=== PATIENT | male | born 1965 | race Caucasian/White ===

== ENCOUNTER 2020-09-26 21:02 | Emergency (ER) | payer BC, OTHER ==
[2020-09-26 21:16] VITALS: BP 128/71; PULSE 95
[2020-09-26] MEDS ORDERED: Sodium Chloride 0.9% 10 ML Syringe FLUSH PRN (21:18)
--- NOTE | 2020-09-26 21:43 | EDM.PDOC ---
ED HPI GENERAL MEDICAL PROBLEM - General Chief Complaint: Respiratory Problem Stated Complaint: cough and congestion feels horrible Time Seen by Provider: 09/26/20 21:07 Source of Information: Reports: Patient, RN Notes Reviewed History Limitations: Reports: No Limitations - History of Present Illness INITIAL COMMENTS - FREE TEXT/NARRATIVE: Patient is a 54-year-old male presenting to the emergency department with complaints of cough and chest congestion. Reports he has felt chest congestion for approximately 1 week and the cough has been occurring for the last few days. Reports that at times he coughs so hard that it makes him dry heaves. His cough is occasionally productive. He also reports intermittent dizziness upon standing. Denies any chest pain or shortness of breath. Denies any chronic lung conditions. He has not had Covid nor has he been vaccinated for this. He denies any known exposures to individuals positive for Covid 19. He has had no fever, chills, abdominal pain, nausea, vomiting, or diarrhea. Denies any sinus congestion or sore throat. Vital signs in triage were found to be normal. Temperature 97.7, pulse 95, blood pressure 128/71, respiratory rate 18, oxygen 95% on room air. Orthostatic vital signs were also obtained during the triage process and were found to be normal. Patient is not orthostatic. Chest Pain Score (Numeric/FACES): 4 - Related Data Allergies Allergy/AdvReac Type Severity Reaction Status Date / Time prednisone Allergy Other Verified 09/26/20 21:09 Home Meds: Home Meds Losartan/Hydrochlorothiazide [Losartan-HCTZ 50-12.5 MG] 1 tab PO DAILY 09/26/20 [History] Past Medical History - Past Health History Medical/Surgical History: Denies Medical/Surgical History HEENT History: Reports: None Cardiovascular History: Reports: Hypertension Respiratory History: Reports: None Gastrointestinal History: Reports: GERD Genitourinary History: Reports: None Musculoskeletal History: Reports: None Neurological History: Reports: Migraines Psychiatric History: Reports: None Endocrine/Metabolic History: Reports: None Hematologic History: Reports: None Immunologic History: Reports: None Oncologic (Cancer) History: Reports: None Dermatologic History: Reports: None - Infectious Disease History Infectious Disease History: Reports: Chicken Pox, Measles - Past Surgical History HEENT Surgical History: Reports: Oral Surgery GI Surgical History: Reports: Appendectomy Musculoskeletal Surgical History: Reports: None Social & Family History - Family History Family Medical History: No Pertinent Family History - Tobacco Use Tobacco Use Status *Q: Former Tobacco User Used Tobacco, but Quit: Yes Month/Year Tobacco Last Used: 04/2000 - Caffeine Use Caffeine Use: Reports: Coffee - Recreational Drug Use Recreational Drug Use: Yes Drug Use in Last 12 Months: No Recreational Drug Type: Reports: Marijuana/Hashish Recreational Drug Use Frequency: Not Used In Over 1 Year ED ROS GENERAL - Review of Systems Review Of Systems: See Below Constitutional: Reports: Fatigue. Denies: Fever, Chills HEENT: Reports: No Symptoms Respiratory: Reports: Cough, Sputum. Denies: Shortness of Breath, Wheezing Cardiovascular: Reports: Lightheadedness (upon standing). Denies: Chest Pain Endocrine: Reports: No Symptoms GI/Abdominal: Reports: Vomiting. Denies: Abdominal Pain, Diarrhea, Nausea : Reports: No Symptoms Musculoskeletal: Reports: No Symptoms Skin: Reports: No Symptoms Neurological: Reports: No Symptoms Psychiatric: Reports: No Symptoms Hematologic/Lymphatic: Reports: No Symptoms Immunologic: Reports: No Symptoms ED EXAM, GENERAL - Physical Exam Exam: See Below Exam Limited By: No Limitations General Appearance: Alert, WD/WN, No Apparent Distress Respiratory/Chest: No Respiratory Distress, Lungs Clear, Normal Breath Sounds, No Accessory Muscle Use, Chest Non-Tender Cardiovascular: Normal Peripheral Pulses, Regular Rate, Rhythm, No Edema, No Gallop, No JVD, No Murmur, No Rub GI/Abdominal: Normal Bowel Sounds, Soft, Non-Tender, No Organomegaly, No Distention, No Abnormal Bruit, No Mass Neurological: Alert, Oriented, CN II-XII Intact, Normal Cognition, Normal Gait, Normal Reflexes, No Motor/Sensory Deficits Psychiatric: Normal Affect, Normal Mood Skin Exam: Warm, Dry, Intact, Normal Color, No Rash Course - Vital Signs Last Recorded V/S: Last Vital Signs Temp 97.7 F 09/26/20 21:14 Pulse 95 09/26/20 21:14 Resp 18 09/26/20 21:14 BP 128/71 09/26/20 21:14 Pulse Ox 95 09/26/20 21:14 Orthostatic Blood Pressure [ 110/60 Standing] Orthostatic Blood Pressure [ 111/76 Sitting] Orthostatic Blood Pressure [ 117/68 Supine] - Orders/Labs/Meds Labs: Laboratory Tests 09/26/20 09/26/20 09/26/20 Range/Units 21:41 21:41 21:42 WBC 4.16 L (4.23-9.07) K/mm3 RBC 4.74 (4.63-6.08) M/mm3 Hgb 14.9 (13.7-17.5) gm/dl Hct 41.4 (40.1-51.0) % MCV 87.3 (79.0-92.2) fl MCH 31.4 (25.7-32.2) pg MCHC 36.0 H (32.2-35.5) g/dl RDW Std Deviation 44.8 H (35.1-43.9) fL Plt Count 175 (163-337) K/mm3 MPV 9.8 (9.4-12.3) fl Neut % (Auto) 75.8 H (34.0-67.9) % Lymph % (Auto) 16.1 L (21.8-53.1) % Love % (Auto) 7.2 (5.3-12.2) % Eos % (Auto) 0.2 L (0.8-7.0) Baso % (Auto) 0.2 (0.1-1.2) % Neut # (Auto) 3.15 (1.78-5.38) K/mm3 Lymph # (Auto) 0.67 L (1.32-3.57) K/mm3 Love # (Auto) 0.30 (0.30-0.82) K/mm3 Eos # (Auto) 0.01 L (0.04-0.54) K/mm3 Baso # (Auto) 0.01 (0.01-0.08) K/mm3 Sodium 132 L (136-145) mEq/L Potassium 3.1 L (3.5-5.1) mEq/L Chloride 95 L (98-107) mEq/L Carbon Dioxide 24 (21-32) mEq/L Anion Gap 16.1 H (5-15) BUN 21 H (7-18) mg/dL Creatinine 1.4 H (0.7-1.3) mg/dL Est Cr Clr Drug Dosing 63.01 mL/min Estimated GFR (MDRD) 53 (>60) mL/min BUN/Creatinine Ratio 15.0 (14-18) Glucose 119 H (70-99) mg/dL Calcium 8.3 L (8.5-10.1) mg/dL Total Bilirubin 0.7 (0.2-1.0) mg/dL AST 165 H (15-37) U/L ALT 322 H (16-63) U/L Alkaline Phosphatase 81 (46-116) U/L C-Reactive Protein 5.1 H* (<1.0) mg/dL Total Protein 7.0 (6.4-8.2) g/dl Albumin 3.6 (3.4-5.0) g/dl Globulin 3.4 gm/dL Albumin/Globulin Ratio 1.1 (1-2) SARS-CoV-2 RNA (NOELLE) Positive H (NEGATIVE) Meds: Medications Discontinued Medications Generic Name Dose Route Start Last Admin Trade Name Freq PRN Reason Stop Dose Admin Potassium Chloride 40 meq 09/26/20 23:03 09/26/20 23:19 Potassium Chloride 20 Meq Tab.Er PO 09/26/20 23:04 40 meq ONETIME ONE Administration Sodium Chloride 10 ml 09/26/20 21:18 09/26/20 21:45 Sodium Chloride 0.9% 10 Ml Syringe FLUSH 10 ml ASDIRECTED PRN Administration Keep Vein Open - Re-Assessments/Exams Free Text/Narrative Re-Assessment/Exam: 09/26/20 23:00 Hematology significant for WBC is low at 4.16, sodium slightly low at 132, potassium 3.1, chloride 95, anion gap 16.1, BUN 21, creatinine 1.4, AST 165, ALT 322, CRP 5.1. Chest x-ray shows diffuse patchy infiltrates throughout both lungs consistent with viral pneumonia. Covid test was positive. Patient has maintained oxygen saturations in the mid 90s on room air throughout his stay in the ER. Results discussed with patient. Did discuss the option of dexamethasone, however he declined this. States steroids make him agitated and he "does not want that crap ". Patient does not qualify for monoclonal antibody treatment based on his age and lack of comorbid conditions. Discussed recommendation for home oxygen monitoring as well as return precautions. I would like him to follow-up with his primary care provider in 2 weeks to have lab values rechecked to ensure that his liver enzymes returned to normal levels. Patient verbalized understanding of this. Discharge instructions as documented. Departure - Departure Time of Disposition: 23:00 Disposition: Home, Self-Care 01 Condition: Good Clinical Impression: COVID-19 - Discharge Information *PRESCRIPTION DRUG MONITORING PROGRAM REVIEWED*: No *COPY OF PRESCRIPTION DRUG MONITORING REPORT IN PATIENT FABIO: No Instructions: COVID-19 Frequently Asked Questions, COVID-19 Referrals: Luda Amezcua [facility]ER [Primary Care Provider] - Forms: ED Department Discharge Additional Instructions: You were seen in the emergency department today for cough, chest congestion, intermittent dry heaves, and intermittent dizziness. Work-up included blood work, chest x-ray, and a Covid test. Results of your work-up confirm that you do in fact have COVID-19. Chest x-ray did show viral pneumonia. Your blood work indicated that your potassium was slightly low. You also have mildly elevated liver enzymes. While in the ER, he did receive potassium supplementation. Recommend that you increase your intake of potassium rich foods. I would recommend hydration with fluids such as Gatorade and Powerade over the next few days until your symptoms improve. You may use Tylenol or ibuprofen as needed for discomfort. The option of dexamethasone was discussed today and you declined. He also declined nausea medications. I would recommend that you purchase a home pulse oximeter to monitor your oxygen saturations. If you are maintaining an oxygen saturation below 90% or you feel that you are worsening in any other way, return to the emergency department for reevaluation. Follow-up with your primary care provider in 2 weeks time to have your lab values rechecked and ensure that your liver enzymes returned to normal. Follow the recommendation from the [facility] with regards to quarantine guidelines. Sepsis Event Note (ED) - Evaluation Sepsis Screening Result: No Definite Risk
[2020-09-26] MEDS ORDERED: Potassium Chloride 20 MEQ Tab.ER PO ONE (23:03)
--- NOTE | 2020-09-27 09:04 | CR ---
Chest: Portable view of the chest was obtained. Comparison: No prior chest imaging is available. Patchy areas of increased density are seen bilaterally within the mid and lower lungs. Heart size and mediastinum are within normal limits. Bony structures show nothing acute. Impression: 1. Findings suspicious for mild areas of possible pneumonia within bilateral mid and lower lungs. Please correlate if patient has correlating symptoms. Diagnostic code #3
== END 2020-09-26 23:17 | disposition home or self-care (01) ==
LOC: JD.ED 21:02
DX: U07.1 COVID-19 (principal); Z87.891 Personal history of nicotine dependence; Z88.8 Allergy status to other drugs, medicaments and biological substances
CPT/HCPCS: 36415; 71045; 80053; 85025; 86140; 87635; 99284; A9270; 99283; U0002